=== PATIENT | male | born 1995 | race African-American/Black ===

== ENCOUNTER 2018-08-07 14:32 | Emergency (ER) | payer BC ==
[~2018-08-07] VITALS: Ht 175.3 cm; Wt 74.8 kg
[2018-08-07 14:47] VITALS: BP 126/72
[2018-08-07] MEDS ORDERED: AZIT250T6 PO (15:16)
[2018-08-07] MEDS ORDERED: BACI28.34 TP (15:16)
--- NOTE | 2018-08-07 15:17 | PHYS DOC ---
Past Medical History Past Medical History: No Pertinent History Past Surgical History: No Surgical History Alcohol Use: Occasionally Drug Use: None Adult General Chief Complaint Chief Complaint: INSECT BITE [facility] HPI Patient is a 23 year old male who presents with 1 day of a small pinpoint but bite or pimple to the left dorsal forearm and a cough and nasal congestion with production of green mucus. Review of Systems Review of Systems Constitutional: Denies fever or chills [] Eyes: Denies change in visual acuity, redness, or eye pain [] HENT: Denies nasal congestion or denies sore throat [] Respiratory: cough or denies shortness of breath [] Cardiovascular: No additional information not addressed in HPI [] GI: Denies abdominal pain, nausea, vomiting, bloody stools or diarrhea [] : Denies dysuria or hematuria [] Musculoskeletal: Denies back pain or joint pain [] Integument: Small red pimple or bite. Denies rash or skin lesions [] Neurologic: Denies headache, focal weakness or sensory changes [] Endocrine: Denies polyuria or polydipsia [] All other systems were reviewed and found to be within normal limits, except as documented in this note. Allergies Allergies Allergies Coded Allergies Type Severity Reaction Last Updated Verified No Known Drug Allergies 08/07/18 No Physical Exam Physical Exam Constitutional: Well developed, well nourished, no acute distress, non-toxic appearance. [] HENT: Normocephalic, atraumatic, bilateral external ears normal, oropharynx moist, no oral exudates, nose normal. [] Eyes: PERRLA, EOMI, conjunctiva normal, no discharge. [] Neck: Normal range of motion, no tenderness, supple, no stridor. [] Cardiovascular:Heart rate regular rhythm, no murmur [] Lungs & Thorax: Bilateral breath sounds clear to auscultation [] Abdomen: Bowel sounds normal, soft, no tenderness, no masses, no pulsatile masses. [] Skin: Right arm dorsal small pinpoint papule. Warm, dry, no erythema, no rash. [ ] Back: No tenderness, no CVA tenderness. [] Extremities: No tenderness, no cyanosis, no clubbing, ROM intact, no edema. [] Neurologic: Alert and oriented X 3, normal motor function, normal sensory function, no focal deficits noted. [] Psychologic: Affect normal, judgement normal, mood normal. [] Current Patient Data Vital Signs Vital Signs Date Time Temp Pulse Resp B/P (MAP) Pulse Ox O2 Delivery O2 Flow Rate FiO2 08/07/18 14:47 98.1 80 16 126/72 (90) 99 Room Air 98.1 EKG EKG [] Radiology/Procedures Radiology/Procedures [] Course & Med Decision Making Course & Med Decision Making Patient is a 23 year old male who presents with 1 day of a small pinpoint but bite or pimple to the left dorsal forearm and a cough and nasal congestion with production of green mucus. . Skin pink warm and dry. Mucous membranes are moist. Afebrile. Vital signs within normal limits. Patient denies nausea, vomiting, abdominal pain, diarrhea, dysuria or shortness of air, chest pain. Patient is a small pinpoint papule that has a evans on it. Patient states he is already opened it once. Alert and oriented. Lungs are clear to Her lungs were diminished in lower lobes. Throat is pink without exudates or swelling. Bilateral ear tympanic is pearly white. Patient has some frontal sinus pain with palpation. Patient will be treated with a Z-Nilo and is to put antibiotic ointment on the papule on his arm. Patient states that he feels that his left eyelid is swollen but I do not see any swelling, lesions, styes or infection to the eye. Conjunctiva is white. Dragon Disclaimer Dragon Disclaimer This electronic medical record was generated, in whole or in part, using a voice recognition dictation system. Departure Departure Impression: Primary Impression: Cough Additional Impression: Papule of skin Disposition: 01 HOME, SELF-CARE Condition: STABLE Referrals: NO PCP (PCP) Patient Instructions: Cough, Adult Additional Instructions: Follow-up with your primary care provider. Use antibiotic ointment on your arm. Take antibiotic as prescribed. Drink plenty of fluids. Try [id number] cold medication. Scripts Bacitracin/Polymyxin B Sulfate (POLYSPORIN TOPICAL OINT) 28.3 Gm Oint...g. 1 TERRY TP BID for WOUND CARE, #1 TUBE DIRECTED BY PHYSICIAN Prov: TIRSHA ODEN APRN 08/07/18 Azithromycin (AZITHROMYCIN TABLET) 250 Mg Tablet 1 PKG PO UD, #6 TAB Prov: TRISHA ODEN APRN 08/07/18 Problem Qualifiers TRISHA ODEN APRN Aug 07, 2018 15:17
== END 2018-08-07 15:42 | disposition home or self-care (01) ==
LOC: ER 14:32
DX: R23.8 Other skin changes (principal); R05 Cough; R09.81 Nasal congestion
CPT/HCPCS: 99283